=== PATIENT | male | born 1995 | race Asian ===

== ENCOUNTER 2022-10-22 15:50 | Emergency (ER) | payer MEDICAID ==
[~2022-10-22] VITALS: Ht 167.6 cm; Wt 88.5 kg
[2022-10-22 16:00] VITALS: BP_SYST 128
--- NOTE | 2022-10-22 16:15 | NUR ---
PT BIB SELF. C/O SUTURE REMOVAL TO NOSE. PT DENIES DRIANAGE. PT DENIES N/V/D. Pt states to be keeping sutures dry and clean. Pt afebrile. vss. [id number]. pt speaking in full complete sentences.
--- NOTE | 2022-10-22 16:35 | NUR ---
ER at bedside examining patient.
--- NOTE | 2022-10-22 16:38 | NUR ---
DR MANN performed suture removal. pt tolerated precedure well.
[2022-10-22 16:44] VITALS: BP_SYST 128
--- NOTE | 2022-10-22 16:44 | NUR ---
Patient given written and verbal discharge instructions and verbalizes understanding. ER MD discussed with patient the results and treatment provided. Patient in stable condition. ID arm band removed. Patient educated on pain management and to follow up with PMD. P Opportunity for questions provided and answered. Medication side effect fact sheet provided.
== END 2022-10-22 16:44 | disposition home or self-care (01) ==
LOC: SED 15:50
DX: Z48.02 Encounter for removal of sutures (principal); Z79.899 Other long term (current) drug therapy
CPT/HCPCS: 99281